=== PATIENT | female | born 1960 | race Caucasian/White ===

== ENCOUNTER 2020-01-01 08:55 | Day surgery (SDC) | payer OTHER, SELFPAY ==
[~2020-01-01] VITALS: Ht 162.6 cm; Wt 90.7 kg
[2020-01-01] MEDS ORDERED: BUPIVACAINE /PF 0.25% 30 ML VIAL INJ ONE (08:56)
[2020-01-01] MEDS ORDERED: IOPAMIDOL 50 ML VIAL IV ONE (08:56)
[2020-01-01] MEDS ORDERED: LIDOCAINE 1% 10 MG/ML, 20 ML MDV INJ ONE (08:56)
[2020-01-01] MEDS ORDERED: methylPREDNISolone ACETATE 40 MG/ML IM ONE (08:56)
[2020-01-01] MEDS: MIDAZOLAM HCL 5 MG/5 ML VIAL ONE ×2 (09:58→10:02)
[2020-01-01] MEDS ORDERED: DIPHENHYDRAMINE INJ 50 MG/ML VIAL ONE (10:15)
[2020-01-01] MEDS ORDERED: MORPHINE SULFATE 10 MG/ML VIAL IM ONE (11:25)
[2020-01-01] MEDS ORDERED: MORPHINE SULFATE 10 MG/ML VIAL ONE (11:29)
[2020-01-01 13:29] VITALS: BP_SYST 141
== END 2020-01-01 12:00 | disposition home or self-care (01) ==
LOC: SDS 08:55 → SMU 09:01 → SDS 12:00
PROVIDERS: ATTEND Internal Medicine
DX: M51.16 Intervertebral disc disorders with radiculopathy, lumbar region (principal); J45.909 Unspecified asthma, uncomplicated; I10 Essential (primary) hypertension; E03.9 Hypothyroidism, unspecified; E11.9 Type 2 diabetes mellitus without complications; E78.5 Hyperlipidemia, unspecified; K21.9 Gastro-esophageal reflux disease without esophagitis; Z20.828 Contact with and (suspected) exposure to other viral communicable diseases; Z79.899 Other long term (current) drug therapy
CPT/HCPCS: 62323; J1030; J1200; J2001; J2250; J2270; J3490; J7120; Q9967; U0003; 76000

== ENCOUNTER 2020-07-01 08:36 | Day surgery (SDC) | payer OTHER, SELFPAY ==
[~2020-07-01] VITALS: Ht 162.6 cm; Wt 81.6 kg
[2020-07-01] MEDS ORDERED: MORPHINE 2 MG/ML INJ. SYRINGE ONE (12:01)
[2020-07-01] MEDS: MIDAZOLAM HCL 5 MG/5 ML VIAL ONE ×2 (12:14→12:16)
[2020-07-01 14:30] VITALS: BP_SYST 131
[2020-07-01] MEDS ORDERED: DIPHENHYDRAMINE INJ 50 MG/ML VIAL ONE (14:32)
== END 2020-07-01 12:55 | disposition home or self-care (01) ==
LOC: SDS 08:36 → SMU 08:37 → SDS 12:55
PROVIDERS: ATTEND Internal Medicine
DX: M51.16 Intervertebral disc disorders with radiculopathy, lumbar region (principal); Z79.899 Other long term (current) drug therapy; Z20.828 Contact with and (suspected) exposure to other viral communicable diseases
CPT/HCPCS: 62323; J1200; J2250; J2270; U0003; 76000

== ENCOUNTER 2020-08-19 08:35 | Day surgery (SDC) | payer OTHER ==
[~2020-08-19] VITALS: Ht 162.6 cm; Wt 89.4 kg
[2020-08-19 11:46] VITALS: BP_SYST 126
[2020-08-19] MEDS ORDERED: MIDAZOLAM HCL 5 MG/5 ML VIAL ONE (12:50)
[2020-08-19] MEDS ORDERED: DIPHENHYDRAMINE INJ 50 MG/ML VIAL ONE (12:50)
== END 2020-08-19 12:58 | disposition home or self-care (01) ==
LOC: SDS 08:35 → SMU 08:42 → SDS 12:58
PROVIDERS: ATTEND Internal Medicine
DX: M50.13 Cervical disc disorder with radiculopathy, cervicothoracic region (principal); E11.9 Type 2 diabetes mellitus without complications; Z79.84 Long term (current) use of oral hypoglycemic drugs; I10 Essential (primary) hypertension; E78.5 Hyperlipidemia, unspecified; J45.909 Unspecified asthma, uncomplicated; G47.30 Sleep apnea, unspecified; Z99.89 Dependence on other enabling machines and devices
CPT/HCPCS: 36415; 62321; 82962; 87426; J1200; J2250; J7030; 76000

== ENCOUNTER 2020-10-28 08:19 | Day surgery (SDC) | payer OTHER, SELFPAY ==
[~2020-10-28] VITALS: Ht 162.6 cm; Wt 90.7 kg
[2020-10-28] MEDS ORDERED: MIDAZOLAM HCL 5 MG/5 ML VIAL ONE (08:50)
[2020-10-28] MEDS ORDERED: DIPHENHYDRAMINE INJ 50 MG/ML VIAL ONE (08:50)
[2020-10-28] MEDS ORDERED: MORPHINE 2 MG/ML INJ. SYRINGE ONE (15:07)
[2020-10-28 15:24] VITALS: BP_SYST 135
== END 2020-10-28 12:05 | disposition home or self-care (01) ==
LOC: SDS 08:19 → SMU 08:23 → SDS 12:05
PROVIDERS: ATTEND Internal Medicine
DX: M51.16 Intervertebral disc disorders with radiculopathy, lumbar region (principal); M79.10 Myalgia, unspecified site; Z79.84 Long term (current) use of oral hypoglycemic drugs; Z79.899 Other long term (current) drug therapy
CPT/HCPCS: 62323; 82962; J2250; J2270; U0003; 76000; J1200

== ENCOUNTER 2021-06-02 07:25 | Day surgery (SDC) | payer OTHER, SELFPAY ==
[~2021-06-02] VITALS: Ht 162.6 cm; Wt 83.9 kg
[2021-06-02] MEDS ORDERED: BUPIVACAINE /EPINEPHRINE/PF 0.25% 30 ML VIAL INJ ONE (07:26)
[2021-06-02] MEDS ORDERED: ISOVUE-300 (IOPAMIDOL) 100 ML INFUS..BTL IV ONE (07:26)
[2021-06-02] MEDS ORDERED: LIDOCAINE 2%, 20 ML MDV INJ ONE (07:26)
[2021-06-02] MEDS ORDERED: NS 1000 ML IV.SOLN IV ONE (07:26)
[2021-06-02] MEDS ORDERED: methylPREDNISolone ACETATE 40 MG/ML IM ONE (07:26)
[2021-06-02] MEDS ORDERED: MIDAZOLAM HCL 5 MG/5 ML VIAL ONE ×2 (08:56→12:44)
[2021-06-02] MEDS ORDERED: DIPHENHYDRAMINE INJ 50 MG/ML VIAL ONE (08:56)
[2021-06-02] MEDS ORDERED: ONDANSETRON HCL 4 MG/2 ML VIAL IVP ONE (11:30)
[2021-06-02] MEDS ORDERED: ONDANSETRON HCL 4 MG/2 ML VIAL ONE (11:32)
[2021-06-02 16:21] VITALS: BP_SYST 124
== END 2021-06-02 12:12 | disposition home or self-care (01) ==
LOC: SDS 07:25 → SMU 07:25 → SDS 12:12
PROVIDERS: ATTEND Internal Medicine
DX: M51.16 Intervertebral disc disorders with radiculopathy, lumbar region (principal); M50.13 Cervical disc disorder with radiculopathy, cervicothoracic region; Z20.822 Contact with and (suspected) exposure to COVID-19; Z79.899 Other long term (current) drug therapy
CPT/HCPCS: 36415; 62323; 82962; 87426; J1030; J1200; J2001; J2250; J2405; J3490; J7030; Q9967; U0003 ×2; 76000